=== PATIENT | female | born 2000 | race Caucasian/White ===

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

== ENCOUNTER 2018-02-16 17:41 | Emergency (ER) | payer OTHER ==
[2018-02-16 18:10] VITALS: BP 132/88
[2018-02-16] MEDS ORDERED: ceFUROXime TAB(*) 250 MG PO ONE (18:41)
[2018-02-16] MEDS ORDERED: DOXYcycline CAP(*) 100 MG PO ONE (18:45)
--- NOTE | 2018-02-16 18:47 | UC ---
Throat Pain/Nasal Charly HPI - HPI Summary HPI Summary: 17-year-old female presents with complaints of 4 day history nasal congestion, postnasal drip,sinus pressure, bilateral ear fullness, right ear pain, sore throat, and occasional nonproductive cough. Denies fever, chills, dysphagia, chest pain, shortness of breath, abdominal pain, nausea, vomiting, or diarrhea. - History of Current Complaint Chief Complaint: UCRespiratory Stated Complaint: THROAT,STUFFY HEAD Time Seen by Provider: 02/16/18 18:08 Hx Obtained From: Patient Hx Last Menstrual Period: 01/29/18 ?: No Onset/Duration: Gradual Onset, Lasting Days - 4 Severity: Moderate Pain Intensity: 6 Cough: Nonproductive Associated Signs & Symptoms: Positive: Sinus Discomfort, Nasal Discharge. Negative: Dysphagia, Wheezing, Hoarseness, Fever, Vomiting - Allergies/Home Medications Allergies/Adverse Reactions: Allergies Allergy/AdvReac Type Severity Reaction Status Date / Time amoxicillin Allergy Hives/Diff. Verified 02/16/18 18:01 Breathing/I tching Home Medications: Home Medications Aspirin/Acetaminophen/Caffeine [Excedrin Migraine Caplet] 2 each PO BID PRN 05/05 [History Confirmed 02/16/18] diphenhydrAMINE HCl [Benadryl Allergy] 25 mg PO DAILY PRN 02/16/18 [History Confirmed 02/16/18] PMH/Surg Hx/FS Hx/Imm Hx Previously Healthy: Yes - Denies significant PMH - Surgical History Surgical History: Yes Surgery Procedure, Year, and Place: T&A 2000. 01/2015 Tube in left ear; left ear bone mass removed 2015 - Family History Known Family History: Positive: Cardiac Disease, Hypertension, Diabetes - Social History Occupation: Employed Full-time Lives: With Family Alcohol Use: None Substance Use Type: None Smoking Status (MU): Never Smoked Tobacco Have You Smoked in the Last Year: No Household Exposure Type: Cigarettes - Immunization History Most Recent Influenza Vaccination: no Vaccination Up to Date: Yes Review of Systems All Other Systems Reviewed And Are Negative: Yes Constitutional: Negative: Fever, Chills Skin: Negative: Rash Eyes: Negative: Drainage, Eye Redness ENT: Positive: Sore Throat, Ear Ache, Nasal Discharge, Sinus Congestion, Sinus Pain/Tenderness Respiratory: Positive: Cough. Negative: Shortness Of Breath Cardiovascular: Negative: Palpitations, Chest Pain Gastrointestinal: Negative: Abdominal Pain, Vomiting, Diarrhea, Nausea Is Patient Immunocompromised?: No Physical Exam - Summary Physical Exam Summary: GENERAL APPEARANCE: Well developed, obese, and cooperative adult who appears to be in no acute distress. HEAD: Atraumatic. normocephalic. EYES: Conjunctiva clear. No discharge. EARS: External auditory canals clear. Hearing grossly intact. Left TM opaque with good cone of light. Right TM erythematous. NOSE: Nasal congestion and discharge. THROAT: Oral cavity normal. Mild pharyngeal edema with post-nasal drip present. Tonsils surgically absent. Teeth and gingiva in good general condition. NECK: Neck supple, non-tender without lymphadenopathy. CARDIAC: Normal S1 and S2. No S3, S4 or murmurs. Rhythm is regular. There is no peripheral edema, cyanosis or pallor. Extremities are warm and well perfused. Capillary refill is less than 2 seconds. LUNGS: Clear to auscultation and percussion without rales, rhonchi, wheezing or diminished breath sounds. No cough observed. ABDOMEN: Positive bowel sounds. Soft, nondistended, nontender. No guarding or rebound. No masses or hepatosplenomegally. SKIN: Skin normal color, texture and turgor with no lesions or eruptions. Triage Information Reviewed: Yes Vital Signs: Initial Vital Signs Temp 98.4 F 02/16/18 18:04 Pulse 96 02/16/18 18:04 Resp 18 02/16/18 18:04 BP 132/88 02/16/18 18:04 Pulse Ox 98 02/16/18 18:04 Vital Signs Reviewed: Yes Throat Pain/Nasal Course/Dx - Course Course Of Treatment: 17-year-old female presents with complaints of 4 day history nasal congestion, postnasal drip,sinus pressure, bilateral ear fullness , right ear pain, sore throat, and occasional nonproductive cough. Denies fever , chills, dysphagia, chest pain, shortness of breath, abdominal pain, nausea, vomiting, or diarrhea. Afebrile. VSS. Exam revealed moderate nasal congestion, mild pharyngeal erythema with post-nasal drip, tender maxillary sinuses, and erythematous right TM. Will treat for acute maxillary sinusitis and right otitis media with doxycycline BID x 7 days since there is a question of anaphylaxis with amoxicillin. First dose given in clinic and patient was dispensed a dose for the morning. Also recommend symptomatic treatment with Fluticasone nasal spray, saline rinses, OTC decongestant, and OTC analgesics. She is to follow up with PCP in 7 days if symptoms persist. Warning symptoms reviewed. Patient verbalizes understanding and agrees with POC. - Differential Dx/Diagnosis Differential Diagnosis/HQI/PQRI: Otitis Media, Pharyngitis, Sinusitis, Tonsillitis, URI Provider Diagnosis: Acute maxillary sinusitis, Right otitis media Discharge - Sign-Out/Discharge Documenting (check all that apply): Patient Departure All imaging exams completed and their final reports reviewed: No Studies - Discharge Plan Condition: Stable Disposition: HOME Prescriptions: Doxycycline Hyclate 100 mg PO BID #12 tablet Fluticasone NASAL SPRAY 50MCG* [Flonase NASAL SPRAY 50MCG*] 2 spray BOTH NARES DAILY #1 btl Patient Education Materials: Sinusitis (ED), Ear Infection (ED) Referrals: No Primary Care Phys,NOPCP [Primary Care Provider] - Additional Instructions: Your exam was suggestive of a sinus infection as well as right ear infection. We will start you on an antibiotic to treat for the infection. Start doxycycline 1 tab twice a day for 7 days. We gave you the first dose in the clinic and sent 1 dose home for you to take in the morning. Use a saline rinse kit such as Neti Pot or NeilMed at least twice a day. Start fluticasone nasal spray 2 sprays each nostril once a day. Take an over the counter decongestant such as Sudafed according to directions as needed for nasal congestion. Take acetaminophen (Tylenol) or ibuprofen (Advil, Motrin) according to directions as needed for fever or pain. Use salt water gargles several times a day if you have a sore throat. You may also use Chloraseptic spray or Cepacol lozenges for some temporary pain relief from your sore throat. Follow-up with your primary care provider in 7 days if symptoms persist. Seek immediate medical attention if you have a persistent fever greater than 100.5 F despite taking acetaminophen or ibuprofen, you are unable to swallow, has difficulty breathing, or have any worsening of symptoms. - Billing Disposition and Condition Condition: STABLE Disposition: Home
== END 2018-02-16 18:57 | disposition home or self-care (01) ==
LOC: UCCORT 17:41
DX: J01.00 Acute maxillary sinusitis, unspecified (principal); H66.91 Otitis media, unspecified, right ear; Z88.0 Allergy status to penicillin
CPT/HCPCS: 87651; 99212; A9270-GY; G0463

== ENCOUNTER 2018-09-30 19:11 | Emergency (ER) | payer SELFPAY ==
--- NOTE | 2018-09-30 19:20 | UC ---
Throat Pain/Nasal Charly HPI - HPI Summary HPI Summary: 18 y/o female presents to the urgent care c/o sore throat and productive cough for the past week. Pt reports she has Hx of seasonal allergies and for the past month she has had nasal congestion and B/L ear pain. Symptoms worsen 1 week ago w/ sore throat and sinus pain, GROSS and dry cough, hoarseness and green PND. Pt has been taking Benadryl PO for her allergies. Pt states pain is 4/10. She developed mild wheezing this morning at times. Pt denies fever, dizziness, SOB, chest pain, abdominal pain, N/V/D, and rash - History of Current Complaint Stated Complaint: SORE THROAT/HEADACHE/EAR Time Seen by Provider: 09/30/18 19:19 Hx Obtained From: Patient Hx Last Menstrual Period: 08/27/2018 ?: No - Pt request a test Onset/Duration: Gradual Onset, Lasting Weeks - 4 weeks, Still Present, Worse Since - 1 week Severity: Moderate Pain Intensity: 4 - B/L ear pain Pain Scale Used: 0-10 Numeric Cough: Nonproductive - PND is green Associated Signs & Symptoms: Positive: Wheezing - mild this morning, Sinus Discomfort, Nasal Discharge, Other - sore throat and B/L ear pain. Negative: Fever Related History: Seasonal Allergies - Epiglottits Risk Factors Epiglottis Risk Factors: Negative - Allergies/Home Medications Allergies/Adverse Reactions: Allergies Allergy/AdvReac Type Severity Reaction Status Date / Time amoxicillin Allergy Hives/Diff. Verified 02/16/18 18:01 Breathing/I tching PMH/Surg Hx/FS Hx/Imm Hx Previously Healthy: Yes - Pt deneis PMHX - Surgical History Surgical History: Yes Surgery Procedure, Year, and Place: T&A 2000. 01/2015 Tube in left ear; left ear bone mass removed 2015 - Family History Known Family History: Positive: Cardiac Disease, Hypertension, Diabetes - Social History Occupation: Employed Full-time Lives: With Family Alcohol Use: None Substance Use Type: None Smoking Status (MU): Never Smoked Tobacco Have You Smoked in the Last Year: No Household Exposure Type: Cigarettes - Immunization History Most Recent Influenza Vaccination: no Vaccination Up to Date: Yes Review of Systems All Other Systems Reviewed And Are Negative: Yes Constitutional: Positive: Negative Skin: Positive: Negative Eyes: Positive: Negative ENT: Positive: Sore Throat, Ear Ache - B/L ear pain, Nasal Discharge - green at times, Sinus Congestion, Sinus Pain/Tenderness, Other - green PND Respiratory: Positive: Cough - dry, Other - mild wheezing today Cardiovascular: Positive: Negative Gastrointestinal: Positive: Negative Genitourinary: Positive: Negative Motor: Positive: Negative Neurovascular: Positive: Negative Musculoskeletal: Positive: Negative Neurological: Positive: Headache Psychological: Positive: Negative Is Patient Immunocompromised?: No Physical Exam - Summary Physical Exam Summary: VITAL SIGNS: Reviewed. GENERAL: Patient is a well developed and nourished obese female who is sitting comfortable in the examining table. Patient is not in any acute respiratory distress. HEAD AND FACE: No signs of trauma. No ecchymosis, hematomas or skull depressions. No sinus tenderness. EYES: PERRLA, EOMI x 2, No injected conjunctiva, no nystagmus. No photophobia. EARS: Hearing grossly intact. B/L externa Ear canals clear, B/L TM injected w/ erythema and yellowish drainage. MOUTH: Positive pharynx with erythema, no exudates,mild palatal petechiae. no tonsillar enlargement with exudate. Uvula in midline. green PND NECK: Supple, trachea is midline, Positive anterior cervical lymphadenopathy, no JVD, no carotid bruit, no c-spine tenderness, neck with full ROM. No meningeal signs, no Kernig's or brudzinskis signs. CHEST: Symmetric, no tenderness at palpation Respiratory: no orthopnea or dyspnea. Able to speak in full sentences, no retractions or accessory muscle use, no tripod position, stridor, or head bobbing. Positive breath sounds bilaterally. posterior left lung w/ mild wheezing, no rhonchi on b/L lungs, no crackles or rales. CVS: Regular rate and rhythm, S1 and S2 present, no murmurs or gallops appreciated. ABDOMEN: Soft, non-tender. No signs of distention. No rebound no guarding, and no masses palpated. Bowel sounds are normal. EXTREMITIES: FROM in all major joints, no edema, no cyanosis or clubbing. NEURO: Alert and oriented x 3. No acute neurological deficits. Speech is normal and follows commands. SKIN: Dry and warm Triage Information Reviewed: Yes Throat Pain/Nasal Course/Dx - Course Course Of Treatment: 18 y/o female presents to the urgent care c/o sore throat and productive cough for the past week. Pt reports she has Hx of seasonal allergies and for the past month she has had nasal congestion and B/L ear pain. Symptoms worsen 1 week ago w/ sore throat and sinus pain, GROSS and dry cough, hoarseness and green PND. Pt has been taking Benadryl PO for her allergies. Pt states pain is 4/10. She developed mild wheezing this morning at times. Pt denies fever, dizziness, SOB, chest pain, abdominal pain, N/V/D, and rash. Pt request a test. Hx obtained. Pt w/ acute bacterial sinusitis and b/l otitis media and mild wheezing in the posterior upper lung on examination. O2Sat:100%. Rapid strep: negative, test: negative. Pt given a Duoneb tx by the nurse. Pt tolerated well treatment and lungs cleared completely. Pt with 4 weeks of symptoms getting worse. Pt PCN allergic. Rx Doxycycline PO and flonase nasal spray. Albuterol inhaler as directed below to alleviate bronchospasm and mild wheezing. Aerochamber given by nurse. Discharge instructions explained to Pt. Advised to Return to the clinic or PCP if symptoms do not improve.Pt understood and agreed with plan of care. - Differential Dx/Diagnosis Differential Diagnosis/HQI/PQRI: Laryngitis, Mononucleosis, Otitis Media, Peritonsillar Abscess, Pharyngitis, Sinusitis, Tonsillitis, URI Provider Diagnosis: Bilateral otitis media, Acute bacterial sinusitis, Wheezing Discharge - Sign-Out/Discharge Documenting (check all that apply): Patient Departure - D/C home All imaging exams completed and their final reports reviewed: No Studies - Discharge Plan Condition: Stable Disposition: HOME Prescriptions: Albuterol HFA INHALER* [Ventolin HFA Inhaler*] 1 - 2 puff INH Q6H PRN #1 mdi PRN Reason: bronchospasm/wheezing DOXYcycline CAP(*) [DOXYcycline 100MG CAP(*)] 100 mg PO BID #20 cap Fluticasone NASAL SPRAY 50MCG* [Flonase NASAL SPRAY 50MCG*] 2 spray BOTH NARES DAILY #1 btl Patient Education Materials: Sinusitis (ED), Ear Infection (ED), Wheezing (ED) Forms: *Work Release Referrals: [facility] [place] [facility] [place]] - 3 Days Additional Instructions: 1-Please increase fluid intake and rest. take full course of antibiotics to avoid resistance. Take yogurts w/ probiotics or Culturelle to protect your GI system 2-Use Flonase as directed to help drain fluid. Also buy saline drops to clear sinuses 3-Take ibuprofen PO q6-8hrs prn to alleviate ear pain. 4-Use the albuterol inhaler w/ aerochamber to alleviate mild wheezing or bronchospasm. Increase fluid intake, rest eat well, and avoid strenuous exercise 5-Please f/u w/ your PCP in 3 days if symptoms do not improve for further management and treatment - Billing Disposition and Condition Condition: STABLE Disposition: Home
[2018-09-30 19:35] VITALS: BP 118/68
[2018-09-30] MEDS ORDERED: Albuterol/Ipratropium NEB.SOL* Albuterol 2.5 MG/Ipratropium 0.5 MG 3 ML INH ONE (19:48)
== END 2018-09-30 20:47 | disposition home or self-care (01) ==
LOC: UCCORT 19:11
DX: H66.93 Otitis media, unspecified, bilateral (principal); J01.90 Acute sinusitis, unspecified; B96.89 Other specified bacterial agents as the cause of diseases classified elsewhere; R06.2 Wheezing; Z88.0 Allergy status to penicillin
CPT/HCPCS: 84702; 87651; 99212; A9270-GY; G0463

== ENCOUNTER 2019-03-03 10:56 | Emergency (ER) | payer SELFPAY ==
[2019-03-03 11:52] VITALS: BP 130/74
--- NOTE | 2019-03-03 12:24 | UC ---
Ear Complaint HPI - HPI Summary HPI Summary: left ear pain x 2 months, pain is 8 out of 10, worse by touch and lying on it has had antibiotic tx in the past with no improvements + yellow discharge with bad odor , denies any fever, + sinus pain / pressure / pnd no cough - History of Current Complaint Chief Complaint: UCEar Stated Complaint: BILATERAL EAR SINUS Time Seen by Provider: 03/03/19 11:47 Hx Obtained From: Patient Hx Last Menstrual Period: 03/01/19 ?: No Onset/Duration: Gradual Onset, Lasting Days - 60, Still Present Severity Initially: Moderate Severity Currently: Moderate Pain Intensity: 8 Aggravating Factors: Cold Alleviating Factors: Nothing Associated Signs/Symptoms: Positive: Discharge, URI Symptoms. Negative: Hearing Loss, Foreign Body Sensation, Trauma to Ear, Swelling @ - Allergies/Home Medications Allergies/Adverse Reactions: Allergies Allergy/AdvReac Type Severity Reaction Status Date / Time amoxicillin Allergy Hives/Diff. Verified 03/03/19 11:41 Breathing/I tching Home Medications: Home Medications Acetaminophen TAB* [Tylenol TAB*] 650 mg PO Q4H PRN 03/03/19 [History Confirmed 03/03/19] PMH/Surg Hx/FS Hx/Imm Hx Endocrine History: Thyroid Disease, Hypothyroidism - Surgical History Surgical History: Yes Surgery Procedure, Year, and Place: T&A 2000. 01/2015 Tube in left ear; left ear bone mass removed 2015 - Family History Known Family History: Positive: Cardiac Disease, Hypertension, Diabetes - Social History Alcohol Use: None Substance Use Type: None Smoking Status (MU): Light Every Day Tobacco Smoker Type: Cigarettes Amount Used/How Often: 5 cigs a day Have You Smoked in the Last Year: No Household Exposure Type: Cigarettes - Immunization History Most Recent Influenza Vaccination: no Vaccination Up to Date: Yes Review of Systems All Other Systems Reviewed And Are Negative: Yes Constitutional: Positive: Negative Skin: Positive: Negative Eyes: Positive: Negative ENT: Positive: Ear Ache, Sinus Congestion, Sinus Pain/Tenderness Respiratory: Positive: Negative Is Patient Immunocompromised?: No Physical Exam Triage Information Reviewed: Yes Appearance: Well-Appearing, Obese Vital Signs: Initial Vital Signs Temp 97.3 F 03/03/19 11:43 Pulse 82 03/03/19 11:43 Resp 17 03/03/19 11:43 BP 130/74 03/03/19 11:43 Pulse Ox 94 12/17/19 11:43 Vital Signs Reviewed: Yes Eyes: Positive: Conjunctiva Clear ENT: Positive: Normal ENT inspection, Hearing grossly normal, Pharynx normal, TMs normal, Sinus tenderness, Other - left ear: + tenderness, erythema of the ear cannal , yellow / clear discharge. Negative: Nasal congestion, Nasal drainage, TM bulging, TM dull, TM red Neck: Positive: Supple, Nontender, No Lymphadenopathy Respiratory: Positive: Chest non-tender, Lungs clear, Normal breath sounds Cardiovascular: Positive: RRR, No Murmur, Pulses Normal Skin Exam: Normal Ear Complaint Course/Dx - Differential Dx/Diagnosis Provider Diagnosis: Otitis externa of left ear, Sinusitis Discharge ED - Sign-Out/Discharge Documenting (check all that apply): Patient Departure All imaging exams completed and their final reports reviewed: No Studies - Discharge Plan Condition: Stable Disposition: HOME Prescriptions: Azithromycin TAB* [Zithromax TAB (Z-AUGIE) 250 mg #6 tabs] 2 tab PO .TODAY, THEN 1 DAILY #1 augie DOXYcycline CAP(*) [DOXYcycline 100MG CAP(*)] 100 mg PO BID #14 cap Neomyc/Polym/HC 1% OTIC SUSP* [Cortisporin Otic Susp 1%*] 4 drop LEFT EAR QID # 1 btl Patient Education Materials: Sinusitis (ED), Otitis Externa (ED) Forms: *Work Release Referrals: No Primary Care Phys,NOPCP [Primary Care Provider] - - Billing Disposition and Condition Condition: STABLE Disposition: Home
== END 2019-03-03 12:22 | disposition home or self-care (01) ==
LOC: UCCORT 10:56
DX: H60.92 Unspecified otitis externa, left ear (principal); J32.9 Chronic sinusitis, unspecified; F17.210 Nicotine dependence, cigarettes, uncomplicated; Z88.0 Allergy status to penicillin
CPT/HCPCS: 99212; G0463

== ENCOUNTER 2019-04-06 14:07 | Emergency (ER) | payer SELFPAY ==
[2019-04-06 14:49] VITALS: BP 138/66
--- NOTE | 2019-04-06 14:50 | UC ---
Ear Complaint HPI - HPI Summary HPI Summary: 18-year-old female who had a left otitis media and otitis externa 3 weeks ago and was started on a Z-Lucas as well as ear drops. She made an appointment with Dr. Chavez however when she arrived they told her she had to pay for the visit and she had no money at this time. The ear has continued to bother her and she notes drainage from it that smells quite foul. She denies any fever or chills. - History of Current Complaint Chief Complaint: UCEar Stated Complaint: EAR COMPLAINT Time Seen by Provider: 04/06/19 14:43 Hx Obtained From: Patient Hx Last Menstrual Period: 03/30/19 ?: No Onset/Duration: Gradual Onset Severity Initially: Moderate Severity Currently: Moderate Pain Intensity: 8 Aggravating Factors: Nothing Alleviating Factors: Nothing - Allergies/Home Medications Allergies/Adverse Reactions: Allergies Allergy/AdvReac Type Severity Reaction Status Date / Time amoxicillin Allergy Hives/Diff. Verified 04/06/19 14:45 Breathing/I tching PMH/Surg Hx/FS Hx/Imm Hx Previously Healthy: Yes - Surgical History Surgical History: Yes Surgery Procedure, Year, and Place: T&A 2000. 01/2015 Tube in left ear; left ear bone mass removed 2015 - Family History Known Family History: Positive: Cardiac Disease, Hypertension, Diabetes - Social History Alcohol Use: None Substance Use Type: None Smoking Status (MU): Light Every Day Tobacco Smoker Type: Cigarettes Amount Used/How Often: 5 cigs a day Have You Smoked in the Last Year: No Household Exposure Type: Cigarettes - Immunization History Most Recent Influenza Vaccination: no Vaccination Up to Date: Yes Review of Systems All Other Systems Reviewed And Are Negative: Yes ENT: Positive: Ear Ache - Left earache with foul smelling drainage Is Patient Immunocompromised?: No Physical Exam Triage Information Reviewed: Yes Appearance: Well-Appearing, No Pain Distress, Well-Nourished Vital Signs: Initial Vital Signs Temp 97.6 F 04/06/19 14:44 Pulse 79 04/06/19 14:44 Resp 16 04/06/19 14:44 BP 138/66 04/06/19 14:44 Pulse Ox 96 04/06/19 14:44 Vital Signs Reviewed: Yes Eye Exam: Normal ENT: Positive: Pharynx normal, Uvula midline, Other - There is foul smelling yellow drainage in the left ear canal. I am able to visualize the tympanic membrane which does not appear erythematous. Tragus and ear are tender on palpation and manipulation. Neck: Positive: Supple, Nontender, No Lymphadenopathy Respiratory: Positive: Lungs clear, Normal breath sounds, No respiratory distress, No accessory muscle use Cardiovascular: Positive: RRR, No Murmur, Pulses Normal, Brisk Capillary Refill Musculoskeletal Exam: Normal Neurological Exam: Normal Psychological Exam: Normal Skin Exam: Normal Ear Complaint Course/Dx - Course Course Of Treatment: The patient is comfortable here. She is going to try and get back in to see the ear nose and throat physician. She is also applying for insurance through her work place and her 's work place. I'm going to treat the otitis externa with ofloxacin drops and see if that treats it more effectively. - Differential Dx/Diagnosis Provider Diagnosis: Left otitis externa Discharge ED - Sign-Out/Discharge Documenting (check all that apply): Patient Departure All imaging exams completed and their final reports reviewed: No Studies - Discharge Plan Condition: Fair Disposition: HOME Prescriptions: Ofloxacin 0.3% (Ear Drop)* [Floxin 0.3% OTIC.SUGEY (Ear Drop)] 5 drop LEFT EAR DAILY 7 Days #1 btl Patient Education Materials: Otitis Externa (DC) Forms: *Work Release Referrals: Carrillo Chavez MD [Medical Doctor] - No Primary Care Phys,NOPCP [Primary Care Provider] - Marky Kwan MD [Medical Doctor] - Additional Instructions: Keep ear clean and dry. Follow-up with either Dr. Chavez or Dr. Kwan in the next 7-10 days for further care. - Billing Disposition and Condition Condition: FAIR Disposition: Home
== END 2019-04-06 15:13 | disposition home or self-care (01) ==
LOC: UCCORT 14:07
DX: H60.92 Unspecified otitis externa, left ear (principal); H66.92 Otitis media, unspecified, left ear; F17.210 Nicotine dependence, cigarettes, uncomplicated; Z88.0 Allergy status to penicillin
CPT/HCPCS: 99212; G0463